=== PATIENT | male | born 1985 ===

== ENCOUNTER 2021-04-22 12:49 | Emergency (ER) | payer SELFPAY ==
[2021-04-22 12:56] VITALS: BP 108/63
--- NOTE | 2021-04-22 13:24 | Emergency Department Report ---
- General Chief Complaint: Fever Stated Complaint: FEVER 4 DAYS STOMACH ACHE Time Seen by Provider: 04/22/21 13:11 Source: patient Mode of arrival: Ambulatory Limitations: No Limitations - History of Present Illness Initial Comments: Patient is a 35-year-old male presents with fever that began 4 days ago. He states he last took Tylenol yesterday and has not taken any Tylenol today for fever. He has associated nausea, mild dry cough, occasional lightheadedness. He denies any abdominal pain, vomiting, diarrhea, sore throat, ear pain, shortness of breath, chest pain. He denies any sick contacts or recent travel. He has not received Covid testing or the COVID-19 vaccine. No past medical history. No allergies to medications. - Related Data Previous Rx's Medication Instructions Recorded Last Taken Type Amoxicillin [Trimox CAP] 500 mg PO BID 10 Days #20 capsule 04/22/21 Unknown Rx Allergies Allergy/AdvReac Type Severity Reaction Status Date / Time No Known Allergies Allergy Unverified 04/22/21 12:53 ED Review of Systems ROS: Stated complaint: FEVER 4 DAYS STOMACH ACHE Other details as noted in HPI Comment: All other systems reviewed and negative ED Past Medical Hx - Past Medical History Previous Medical History?: No - Surgical History Past Surgical History?: No - Social History Smoking Status: Current Every Day Smoker Substance Use Type: None - Medications Home Medications: Home Medications Medication Instructions Recorded Confirmed Last Taken Type Amoxicillin [Trimox CAP] 500 mg PO BID 10 Days #20 capsule 04/22/21 Unknown Rx ED Physical Exam - General Limitations: No Limitations General appearance: alert, in no apparent distress - Head Head exam: Present: atraumatic, normocephalic - Eye Eye exam: Present: normal appearance - ENT ENT exam: Present: mucous membranes moist, TM's normal bilaterally, normal external ear exam, other (posterior oropharynx erythema, no tonsillar exudates or hypertrophy, uvula is midline, no uvular edema or deviation, no trismus, no tongue elevation, no muffled voice ) - Respiratory Respiratory exam: Present: normal lung sounds bilaterally. Absent: respiratory distress, wheezes, rales, rhonchi, stridor, chest wall tenderness, accessory muscle use, decreased breath sounds, prolonged expiratory - Cardiovascular Cardiovascular Exam: Present: regular rate, normal rhythm, normal heart sounds. Absent: systolic murmur, diastolic murmur, rubs, gallop - Neurological Exam Neurological exam: Present: alert, oriented X3 - Psychiatric Psychiatric exam: Present: normal affect, normal mood - Skin Skin exam: Present: warm, dry, intact ED Course Vital Signs 04/22/21 12:53 Temperature 99.1 F Pulse Rate 95 H Respiratory 18 Rate Blood Pressure 108/63 O2 Sat by Pulse 97 Oximetry ED Medical Decision Making - Lab Data Lab Results 04/22/21 Range/Units Unknown Group A Strep Rapid Positive A (Negative) - Medical Decision Making Patient is a 35-year-old male presents with fever that began 4 days ago. He states he last took Tylenol yesterday and has not taken any Tylenol today for fever. He has associated nausea, mild dry cough, occasional lightheadedness. He denies any abdominal pain, vomiting, diarrhea, sore throat, ear pain, shortness of breath, chest pain. He denies any sick contacts or recent travel. He has not received Covid testing or the COVID-19 vaccine. No past medical history. No allergies to medications. vitals are normal. on exam: posterior oropharynx erythema, no tonsillar exudates or hypertrophy, uvula is midline, no uvular edema or deviation, no trismus, no tongue elevation, no muffled voice, breath sounds are clear bilaterally, no wheezing, no rales, no rhonchi. Rapid strep is positive. Patient given prescription for medication. Advised patient please take medication as prescribed. increase your fluid intake. throw away your toothbrush. do not drink after others or allow others to drink after you. follow up with a primary care doctor for reexamination. return to the emergency room for any new or worsening symptoms. Critical care attestation.: If time is entered above; I have spent that time in minutes in the direct care of this critically ill patient, excluding procedure time. ED Disposition Clinical Impression: Strep throat Disposition: DC-01 TO HOME OR SELFCARE Is pt being admited?: No Does the pt Need Aspirin: No Condition: Stable Instructions: Strep Throat, Adult, [id number] Additional Instructions: please take medication as prescribed. increase your fluid intake. throw away your toothbrush. do not drink after others or allow others to drink after you. follow up with a primary care doctor for reexamination. return to the emergency room for any new or worsening symptoms. Prescriptions: Amoxicillin [Trimox CAP] 500 mg PO BID 10 Days #20 capsule Referrals: BOONE LEVY MD [Staff Physician] - 2-3 Days [facility] [Provider Group] - 2-3 Days Time of Disposition: 14:01 Print Language: [id number]
== END 2021-04-22 14:10 | disposition home or self-care (01) ==
LOC: ED 12:49
DX: J02.0 Streptococcal pharyngitis (principal); B95.0 Streptococcus, group A, as the cause of diseases classified elsewhere; F17.200 Nicotine dependence, unspecified, uncomplicated; Z79.899 Other long term (current) drug therapy
CPT/HCPCS: 87430; 99283